=== PATIENT | male | born 1985 | race Caucasian/White ===

== ENCOUNTER → 2022-08-14 09:27 | Outpatient (CLI) | payer BC, SELFPAY ==
--- NOTE | 2022-08-14 09:34 | DI.MRI.S_ITS ---
PROCEDURE: MR WRIST LT WO CON INDICATIONS: LESION OF ULNAR NERVE/LEFT WRIST PAIN TECHNIQUE: Noncontrast coronal proton density fast spin echo and T2 fast spin echo with fat saturation; coronal 3-D gradient echo, axial T1 spin echo and T2 fast spin echo with fat saturation, sagittal T1 spin echo through the wrist. COMPARISON: None. FINDINGS: Image quality: Excellent. Bones and cartilage: The carpal bones are normally aligned. No bone marrow contusions or fractures. No evidence for avascular necrosis. Nonspecific chronic cystic changes are seen within the lunate. Carpal ligaments: The scapholunate and lunotriquetral ligaments appear intact. On sagittal images, the pisohamate ligament appears intact. Triangular fibrocartilage complex: Mildly increased signal is seen within the ulnar foveal attachment of the triangle fibrocartilage that could represent mild partial tearing. No full-thickness tear is seen. The ulnar styloid attachment is intact. The radial attachment of the triangle fibrocartilage is intact. Tendons and soft tissues: The carpal tunnel structures appear normal, including the median nerve. The ulnar nerve demonstrates mild T2 hyperintensity proximal to cans canal. No extrinsic compression is seen. The ulnar nerve appears normal within Guyon's canal. Mild extensor carpi ulnaris tendinosis. The remaining extensor tendon compartments demonstrate normal morphology, without pathologic tendon sheath fluid. No soft tissue ganglion cysts. Intrinsic hand musculature is normal in bulk without signs of acute or chronic denervation changes. IMPRESSION: 1. Mildly increased T2-weighted signal within the ulnar nerve is nonspecific, and can be seen in the setting of ulnar neuritis as well as in normal individuals. No compressive mass is seen along the course of the ulnar nerve or within Guyon's canal. 2. Possible partial tearing of the ulnar foveal attachment of the triangular fibrocartilage. No full-thickness tear is seen. 3. Mild extensor carpi ulnaris tendinosis. Dictated by: Kieth Flores M.D. on 08/14/2022 at 14:42 Approved by: Keith Flores M.D. on 08/14/2022 at 14:51
== END ==
PROVIDERS: Referring Provider Orthopaedic Surgery; Visit Provider Orthopaedic Surgery
DX: G56.22 Lesion of ulnar nerve, left upper limb (principal)
CPT/HCPCS: 73221

== ENCOUNTER → 2023-12-25 09:49 | Outpatient (CLI) | payer OTHER, SELFPAY ==
[2023-12-25 10:38] LABS: Add Manual Diff / Slide Review NO; Basophils Absolute Auto 100 /uL (0-100); Basophils Percent Auto 0.8 % (0-2); Eosinophils Absolute Auto 200 /uL (0-450); Eosinophils Percent Auto 3.1 % (2-4); Hematocrit 41.5 % (41-53); Hemoglobin 14.7 g/dL (13.5-17.5); Lymphocytes Absolute Auto 1800 /uL (1100-4500); Lymphocytes Percent Auto 29.9 % (25-40); Mean Corpuscular HGB Conc 35.5 % (30-36); Mean Corpuscular Hemoglobin 29.9 PG (26-34); Mean Corpuscular Volume 84.2 fL (80-100); Monocytes Absolute Auto 600 /uL (0-900); Monocytes Percent Auto 9.6 % (3-14); Neutrophils Absolute Auto 3400 /uL (1500-7000); Neutrophils Percent Auto 56.6 % (50-75); Platelet Count 272 X10^3/uL (150-400); Red Blood Cell Count 4.92 X10^6/uL (4.5-5.9)
[2023-12-25 11:03] LABS: Alanine Aminotransferase 26 IU/L (<50); Albumin 4.5 g/dL (3.5-5.0); Albumin Globulin Ratio 1.6 (1.0-2.8); Alkaline Phosphatase 52 U/L (38-126); Aspartate Aminotransferase 22 IU/L (17-59); BUN Creatinine Ratio 15.5 (6-22); Bilirubin Total 0.6 mg/dL (0.2-1.3); Blood Urea Nitrogen 16 mg/dL (9-20); Calcium 9.4 mg/dL (8.4-10.2); Carbon Dioxide 26 mmol/L (22-32); Chloride 103 mmol/L (98-107); Cholesterol 167 mg/dL (140-199); Estimated Glomerular Filt Rate > 60 mL/min (>60); Globulin 2.9 g/dL (1.7-4.1); Glucose 104 mg/dL (70-100); HDL Cholesterol 51 mg/dL (40-60); HEMOLYSIS < 15 (0-50); LDL Cholesterol Calculated 94 mg/dL (<100); Potassium 4.4 mmol/L (3.4-5.1); Sodium 138 mmol/L (137-145); Total Protein 7.4 g/dL (6.3-8.2); Triglycerides 111 mg/dL (35-150)
== END ==
PROVIDERS: PCP Family Medicine; Referring Provider Family Medicine; Visit Provider Family Medicine
DX: Z00.00 Encounter for general adult medical examination without abnormal findings (principal); K51.90 Ulcerative colitis, unspecified, without complications
CPT/HCPCS: 36415; 80053; 80061; 85025